=== PATIENT | male | born 1995 | race Hispanic/Latino ===

== ENCOUNTER 2018-05-08 00:11 | Emergency (ER) | payer OTHER ==
[2018-05-08 00:30] VITALS: RESP 18
--- NOTE | 2018-05-08 00:45 | ED PDOC ---
Arrival/HPI - General Chief Complaint: Shortness Of Breath Time Seen by Provider: 05/08/18 00:25 Historian: Patient, Parent - History of Present Illness Narrative History of Present Illness (Text): 05/08/18 00:40 Pt is a 23 yr old male BIB mother for medical clearance to ascertain level of heroin in his system after finding him with a hypodermic needle at home and sleeping. Pt states he just arrived home from a [place] drug rehab program yesterday and was placed on seroquel daily. Pt states he "shot up" with heroin when he got home and became extremely sleepy thereafter. He denies chest pain, shortness of breath, nausea, vomiting, diarrhea, travel out of the country, head injury or any other complaints. Time/Duration: Prior to Arrival Symptom Onset: Gradual Symptom Course: Unchanged Quality: Unable to Describe Severity Level: 1 Activities at Onset: Sleeping Context: Home Past Medical History - Provider Review Nursing Documentation Reviewed: Yes - Travel History Have you recently traveled outside [place] w/in the past 3 mons?: No - Infectious Disease Hx of Infectious Diseases: None - Psychiatric Hx Substance Use: Yes Family/Social History - Physician Review Nursing Documentation Reviewed: Yes Family/Social History: Unknown Family HX Smoking Status: Former Smoker Hx Alcohol Use: Yes Hx Substance Use: Yes Substance used: heroin Allergies/Home Meds Allergies/Adverse Reactions: Allergies MDX Ketorolac [From Toradol] Allergy (Verified 05/31/15 00:17) ITCHING c/o itching and "throat closing" Home Medications: Home Meds Medication Instructions Recorded Confirmed No Known Home Med [No Known Home 05/31/15 05/31/15 Med] No Known Home Med 05/08/18 05/08/18 Review of Systems - Review of Systems Systems not reviewed;Unavailable: Other (drug interaction) Constitutional: Normal, Fatigue Eyes: Normal ENT: Normal Respiratory: Normal Cardiovascular: Normal Gastrointestinal: Normal Genitourinary Male: Normal Musculoskeletal: Normal Skin: Normal Neurological: Normal Endocrine: Normal Hemo/Lymphatic: Normal Psychiatric: Normal. absent: Anxiety, Depression, Suicidal Ideation Physical Exam Vital Signs Reviewed: Yes Vital Signs Temp Pulse Resp BP Pulse Ox 05/08/18 03:05 98.2 F 101 H 18 110/62 98 05/08/18 00:30 18 05/08/18 00:29 98.0 F 113 H 18 105/66 93 L Temperature: Afebrile Blood Pressure: Normal Pulse: Tachycardic Respiratory Rate: Normal Appearance: Positive for: Well-Appearing, Non-Toxic, Comfortable Pain Distress: None Mental Status: Positive for: Alert and Oriented X 3, other (drowsy) - Systems Exam Head: Present: Atraumatic, Normocephalic Pupils: Present: PERRL, Pinpoint Extroacular Muscles: Present: EOMI Conjunctiva: Present: Normal Mouth: Present: Moist Mucous Membranes Neck: Present: Normal Range of Motion Respiratory/Chest: Present: Clear to Auscultation, Good Air Exchange. No: Respiratory Distress, Accessory Muscle Use Cardiovascular: Present: Regular Rate and Rhythm, Normal S1, S2. No: Murmurs Abdomen: No: Tenderness, Distention, Peritoneal Signs Back: Present: Normal Inspection Upper Extremity: Present: Normal Inspection. No: Cyanosis, Edema Lower Extremity: Present: Normal Inspection. No: Edema Neurological: Present: GCS=15, CN II-XII Intact, Speech Normal Skin: Present: Warm, Dry, Normal Color. No: Rashes Psychiatric: Present: Alert, Oriented x 3, Normal Insight, Normal Concentration Medical Decision Making ED Course and Treatment: 05/08/18 00:45 Impression Pt is a 23 yr old male BIB mother for medical clearance to ascertain level of heroin in his system after finding him with a hypodermic needle at home and sleeping. Somnolent but arousable, alert and oriented x 3, Plan UDS, EtOH, labs EKG CXR Progress note 05/08/18 01:13 O2 via NC prn Narcan .4mg ivp stat EKG: Sinus Tachycardic; rate of 115; no ST or T-wave abnormalities 05/08/18 01:33 pt remained somnolent and just before narcan administration, pt awoke and declined Pt remains alert, asking to go home and drink water Positive for cocaine and opiates 05/08/18 02:[address] Smallwood Pt was d/c'd home; hemodynamically stable, A&Ox3 Ambulated well out of the ED and was driven home by mother, as per nursing note on patient care and dispo - Lab Interpretations Lab Results: 05/08/18 01:11 05/08/18 01:11 Lab Results 05/08/18 01:17: Urine Opiates Screen Positive H, Urine Methadone Screen Negative , Ur Barbiturates Screen Negative, Ur Phencyclidine Scrn Negative, Ur Amphetamines Screen Negative, U Benzodiazepines Scrn Negative, U Oth Cocaine Metabols Positive H, U Cannabinoids Screen Negative 05/08/18 01:11: Sodium 141, Potassium 4.3, Chloride 102, Carbon Dioxide 26, Anion Gap 16, BUN 20, Creatinine 0.9, Est GFR ( Amer) > 60, Est GFR (Non- Af Amer) > 60, Random Glucose 111 H, Calcium 9.0, Total Bilirubin 0.6, AST 86 H , ALT 193 H, Alkaline Phosphatase 65, Total Protein 7.2, Albumin 4.1, Globulin 3.1, Albumin/Globulin Ratio 1.3 05/08/18 01:11: WBC 9.6, RBC 4.66, Hgb 13.6 L, Hct 40.4 L, MCV 86.7, MCH 29.2, MCHC 33.7, RDW 13.9, Plt Count 299, MPV 8.9 05/08/18 01:11: Acetaminophen < 10.0 L 05/08/18 01:11: Alcohol, Quantitative < 10 - RAD Interpretation Radiology Orders: 05/08/18 01:07 CHEST PORTABLE [RAD] Stat - Medication Orders Current Medication Orders: Discontinued Medications Naloxone HCl (Narcan) 0.4 mg IVP STAT STA Stop: 05/08/18 01:10 Last Admin: 05/08/18 02:15 Dose: Not Given Non-Admin Reason: Patient Refused Disposition/Present on Arrival - Present on Arrival Any Indicators Present on Arrival: Yes History of DVT/PE: No History of Uncontrolled Diabetes: No Urinary Catheter: No History of Decub. Ulcer: No History Surgical Site Infection Following: None - Disposition Have Diagnosis and Disposition been Completed?: Yes Diagnosis: Substance abuse or dependence Disposition: HOME/ ROUTINE Disposition Time: 03:00 Patient Plan: Discharge Condition: STABLE Discharge Instructions (ExitCare): Polysubstance Abuse Forms: [employer] ([place])
[2018-05-08] MEDS ORDERED: Naloxone 0.4 mg/ml Inj (Adult) IVP STA (01:09)
[2018-05-08 01:27] LABS: HEMOGLOBIN 13.6 g/dL (14.0-18.0); MEAN CELL VOLUME 86.7 fl (80.0-105.0); MEAN CORPUSCULAR HEMOGLOBIN 29.2 pg (25.0-35.0); MEAN CORPUSCULAR HGB CONC 33.7 g/dl (31.0-37.0); MEAN PLATELET VOLUME 8.9 fl (7.0-11.0); RBC 4.66 10^6/uL (3.5-6.1); RED CELL DISTRIBUTION WIDTH 13.9 % (11.5-14.5); WHITE BLOOD COUNT 9.6 10^3/ul (4.5-11.0)
[2018-05-08 01:37] LABS: ALB/GLOB RATIO 1.3 (1.1-1.8); ALBUMIN 4.1 g/dL (3.0-4.8); ALT/SGPT 193 U/L (7-56); AST/SGOT 86 U/L (17-59); BLOOD UREA NITROGEN 20 mg/dL (7-21); GFR AFRICAN-AMERICAN > 60; GFR NON-AFRICAN AMERICAN > 60
[2018-05-08 02:02] LABS: BARBITURATES, UR NEGATIVE (NEGATIVE)
[2018-05-08 02:04] LABS: BENZODIAZEPINES, UR NEGATIVE (NEGATIVE); OPIATES, UR POSITIVE (NEGATIVE); PHENCYCLIDINE, UR NEGATIVE (NEGATIVE)
[2018-05-08 03:07] VITALS: BP 110/62; PULSE 101; TEMP 98.2; O2SAT 98
--- NOTE | 2018-05-08 08:24 | RAD ---
HISTORY: sob COMPARISON: No prior. FINDINGS: LUNGS: No active pulmonary disease. PLEURA: No significant pleural effusion identified, no pneumothorax apparent. CARDIOVASCULAR: Normal. OSSEOUS STRUCTURES: No significant abnormalities. VISUALIZED UPPER ABDOMEN: Normal. OTHER FINDINGS: None. IMPRESSION: No active disease.
--- NOTE | 2018-05-08 09:09 | CARD ---
APPROVED REPORT EKG Measurement Heart [id number] <Conclusion> Poor data quality, interpretation may be adversely affected Sinus tachycardia Otherwise normal ECG
== END 2018-05-08 03:05 | disposition home or self-care (01) ==
LOC: ED 00:11 → MERGE 00:11 → ED 03:05
DX: F19.10 Other psychoactive substance abuse, uncomplicated (principal); Z87.891 Personal history of nicotine dependence